=== PATIENT | female | born 1990 | race American Indian/Alaskan Native ===

== ENCOUNTER 2019-01-30 04:50 | Emergency (ER) | payer MEDICAID ==
[2019-01-30 04:59] VITALS: BP 129/73
[2019-01-30 06:25] LABS: HCG Qualitative,Urine Negative (Negative)
== END 2019-01-30 08:00 ==
LOC: ED 04:50
DX: G43.909 Migraine, unspecified, not intractable, without status migrainosus (principal); Z53.21 Procedure and treatment not carried out due to patient leaving prior to being seen by health care provider
CPT/HCPCS: 81025

== ENCOUNTER 2019-10-07 14:30 | Outpatient (CLI) | payer MEDICAID | END 2019-10-07 14:31 | disposition home or self-care (01) | LOC: LABHHL 14:30 | PROVIDERS: ATTEND Surgery | DX: D24.2 Benign neoplasm of left breast (principal) | CPT/HCPCS: 88305 ==

== ENCOUNTER 2019-10-19 09:41 | Outpatient (CLI) | payer MEDICAID ==
--- NOTE | 2019-10-19 10:45 | Mammography Report ---
DIGITAL DIAGNOSTIC MAMMOGRAM WITH CAD, 10/19/2019 INDICATION: Status post biopsy of a fibroadenoma left breast on 10/07/2019. STATUS POST BIOSPY/CLIP PL ACEMENT TECHNIQUE: Digital left mammographic imaging was performed. This examination was interpreted with the benefit of Computer-aided Detection analysis. COMPARISON: None available. FINDINGS: Breast Density: The breast is heterogeneously dense, which may obscure small masses. Localizer clip is identified at 12:00 and the clip is within a personally circumscribed mass measurin g at least 3 cm. Margins are partially obscured. IMPRESSION: Clip deployment appears to be concordant. Follow up recommendation: Unless otherwise clinically indicated, recommend patient return to routine screening mammography at age 38. BI-RADS Category 2: Benign. A "normal" or negative report should not discourage follow up or biopsy of a clinically significant f inding. A written summary of these findings will be mailed to the patient. The patient will be entered into a mammography reporting system which will generate a reminder letter for the patient's next appointmen t at the appropriate interval. According to the [employer], yearly mammograms are recommended starting at age 40 and continuing as long as a woman is in good health. Breast MRI is recommended for women with an antoinette roximately 20-25% or greater lifetime risk of breast cancer, including women with a strong family his tory of breast or ovarian cancer and women who have been treated for Hodgkin's disease. Signer Name: Efren Garcia MD Signed: 10/19/2019 10:41 AM Workstation Name: [id number]
== END 2019-10-19 09:42 | disposition home or self-care (01) ==
LOC: SPVWC 09:41
PROVIDERS: ATTEND Surgery
DX: R92.8 Other abnormal and inconclusive findings on diagnostic imaging of breast (principal); Z98.890 Other specified postprocedural states

== ENCOUNTER 2020-06-27 10:05 | Day surgery (SDC) | payer MEDICAID ==
[~2020-06-27 10:05] MED LIST: BUPIVACAINE/PF (0.25%) 2.5 MG/ML 30 ML VIAL INFILTRATI ONE; LIDOCAINE (1%) 10 MG/1 ML VIAL 20 ML MDV ONE; ceFAZolin/Water 2 GM/20 ML 2 GM/20 ML SYRINGE IV NR
[2020-06-27] MEDS ORDERED: LACTATED RINGERS 1,000 ML ONE ×2 (10:25→12:18)
--- NOTE | 2020-06-27 10:33 | Anesthesia Day of Surgery ---
Anesthesia Day of Surgery - Day of Surgery Patient Examined: Yes Patient H&P Reviewed: Yes Patient is NPO: Yes
--- NOTE | 2020-06-27 10:34 | Anesthesia Consultation ---
Anesthesia Consult and Med Hx Date of service: 06/27/20 - Airway Anesthetic Teeth Evaluation: Good ROM Head & Neck: Adequate Mental/Hyoid Distance: Adequate Mallampati Class: Class II Intubation Access Assessment: Good - Pre-Operative Health Status ASA Pre-Surgery Classification: ASA2 Proposed Anesthetic Plan: General - Pulmonary Hx Smoking: Yes Hx Asthma: No COPD: No - Cardiovascular System Hx Hypertension: No (Pt had preeclampsia and states complete resolution and no current symptoms) Hx Heart Attack/AMI: No Hx Pacemaker: No Hx Internal Defibrillator: No - Central Nervous System Hx Seizures: Yes (When preg due to preeclampsia) Hx Psychiatric Problems: No - Endocrine Hx Renal Disease: No Hx Liver Disease: No Hx Non-Insulin Dependent Diabetes: No - Hematic Hx Sickle Cell Disease: No - Other Systems Hx Cancer: Yes
[2020-06-27] MEDS ORDERED: LIDOCAINE MPF (2%) 20 MG/1 ML VIAL 5 ML ONE (10:47)
[2020-06-27] MEDS ORDERED: propofoL 200 MG/20 ML VIAL IV ONE (10:48)
[2020-06-27] MEDS ORDERED: HYDROmorphone 1 MG/1 ML INJ IV PRN ×2 (11:00)
[2020-06-27] MEDS ORDERED: ONDANSETRON 4 MG/2 ML INJ IV PRN (11:00)
[2020-06-27] MEDS ORDERED: MAGNESIUM OXIDE 400 MG TAB PO SCH (11:00)
[2020-06-27] MEDS ORDERED: GABAPENTIN 300 MG CAP PO NR (11:00)
[2020-06-27] MEDS ORDERED: ACETAMINOPHEN 500 MG TAB PO SCH (11:00)
[2020-06-27] MEDS ORDERED: LACTATED RINGERS 1,000 ML IV SCH (11:00)
[2020-06-27] MEDS ORDERED: MIDAZOLAM 2 MG/2 ML INJ IV NR (11:00)
[2020-06-27] MEDS ORDERED: CELECOXIB 200 MG CAP PO NR (11:00)
[2020-06-27] MEDS ORDERED: LIDOCAINE (1%) 10 MG/1 ML VIAL 20 ML MDV INFILTRATI ONE (12:06)
[2020-06-27] MEDS ORDERED: BUPIVACAINE/PF (0.25%) 2.5 MG/ML 30 ML VIAL INFILTRATI ONE (12:06)
[2020-06-27] MEDS ORDERED: SODIUM CHLORIDE 0.9% IRR 1,500 ML BOTTLE IR ONE (12:07)
[2020-06-27] MEDS ORDERED: ePHEDrine SULFATE 50 MG/1 ML INJ ONE (12:18)
[2020-06-27] MEDS ORDERED: PHENYLEPHRINE/NS 1,000 MCG/10 ML SYRINGE (OR USE) IV ONE (13:00)
[2020-06-27] MEDS ORDERED: dexAMETHasone 20 MG/5 ML VIAL ONE (13:00)
[2020-06-27] MEDS ORDERED: SODIUM CHLORIDE P/F VIAL 10 ML 10 ML ONE (13:11)
--- NOTE | 2020-06-27 13:21 | Short Stay Summary ---
Short Stay Documentation Date of service: 06/27/20 - History H&P: obtained from office - Allergies and Medications Current Medications: Allergies No Known Allergies Allergy (Verified 06/18/20 11:25) Home Medications Medication Instructions Recorded Confirmed Last Taken Type Vit-Fe Fumar-FA [ 1 tab PO QDAY 06/18/20 06/18/20 Unknown History Vitamin] HYDROcodone/APAP 5-325 [[place] 1 each PO Q6HR PRN #20 tablet 06/27/20 Unknown Rx 5/325] Active Medications Acetaminophen (Tylenol) 1,000 mg PO ONCE ANAHI Stop: 06/27/20 21:00 Last Admin: 06/27/20 10:43 Dose: 1,000 mg Documented by: Celecoxib (Celebrex) 400 mg PO PREOP NR Stop: 06/27/20 21:00 Last Admin: 06/27/20 10:43 Dose: 400 mg Documented by: Gabapentin (Gabapentin) 300 mg PO PREOP NR Stop: 06/27/20 21:00 Last Admin: 06/27/20 10:43 Dose: 300 mg Documented by: Hydromorphone HCl (Dilaudid) 0.25 mg IV Q10MIN PRN PRN Reason: Pain, Moderate (4-6) Stop: 06/27/20 16:00 Hydromorphone HCl (Dilaudid) 0.5 mg IV Q10MIN PRN PRN Reason: Pain , Severe (7-10) Stop: 06/27/20 16:00 Cefazolin Sodium (Ancef/Sterile Water 2 Gm/20 Ml) 2 gm in 20 mls @ 80 mls/hr IV PREOP NR; Protocol Stop: 06/27/20 20:00 Lactated Ringer's (Lactated Ringers) 1,000 mls @ 125 mls/hr IV DIRECT ANAHI Last Admin: 06/27/20 10:50 Dose: 125 mls/hr Documented by: Magnesium Oxide (Mag-Ox) 400 mg PO ONCE ANAHI Stop: 06/27/20 21:00 Last Admin: 06/27/20 10:43 Dose: 400 mg Documented by: Midazolam HCl (Versed) 2 mg IV PREOP NR Stop: 06/27/20 23:59 Last Admin: 06/27/20 10:55 Dose: 2 mg Documented by: Ondansetron HCl (Zofran) 4 mg IV ONCE PRN PRN Reason: Nausea And Vomiting Stop: 06/27/20 17:00 - Brief post op/procedure progress note Date of procedure: 06/27/20 Pre-op diagnosis: Right axillary mass and left breast fibroadenoma Post-op diagnosis: same Procedure: Right axillary mass excisional biopsy and left breast fibroadenoma excisional biopsy Anesthesia: GETA Findings: Left breast fibroadenoma at 12:00 position and right axillary mass Surgeon: MORGAN CAO Estimated blood loss: minimal Pathology: list (left breast fibroadenoma; right axillary mass) Specimen disposition: to lab Condition: stable - Disposition Condition at discharge: Good Disposition: DC- TO HOME OR SELFCARE Short Stay Discharge Plan Activity: other (no heavy lifting) Diet: regular Wound: keep clean and dry (wear breast binder; may shower in 48 hours; no baths, pools or lakes) Follow up with: MORGAN CAO MD [Staff Physician] - 7 Days Prescriptions: HYDROcodone/APAP 5-325 [[place] 5/325] 1 each PO Q6HR PRN #20 tablet PRN Reason: Pain
--- NOTE | 2020-06-27 14:07 | Post Anesthesia Evaluation ---
- Post Anesthesia Evaluation Patient Participated: Yes Airway Patent: Yes Stable Respiratory Function: Yes Nausea/Vomiting: No Temp > 96.8F: Yes Pain Manageable: Yes Adequeate Hydration: Yes Anesthesia Complications: No Block Receding Appropriately: Not Applicable Patient on Ventilator: No
[2020-06-27 14:25] VITALS: BP 116/76
--- NOTE | 2020-06-28 14:36 | Operative Report ---
Operative Report Operative Report: Operative Report: June 27, 2020 Preoperative diagnosis: Left breast fibroadenoma of the upper outer quadrant and right axillary mass Postoperative diagnosis: Same Procedure: Complex left breast fibroadenoma excisional biopsy of upper outer quadrant and right axillary mass excisional biopsy Surgeon: Torri Crow MD Artillery Specialist: Vicenta Wolff MD Anesthesia: General Findings: Left breast fibroadenoma at the 12:00 position and right axillary mass Complications: None EBL: Minimal Disposition: PACU in good condition Indications for operative procedure: This is a 30-year-old lady with known left breast fibroadenoma of the upper outer quadrant quadrant at the 12 o'clock position with recommendation for excisional biopsy given increase in size and size. Patient also with a right axillary mass probably for a lipoma and given size patient wanted to proceed with an excisional biopsy given discomfort. She wished to proceed with the above procedure. Procedure in detail: Patient was taken to the operating room and was laid supine. Gen. anesthesia was administered. Left breast and right breast and axilla were prepped and draped in the normal sterile operative fashion. Timeout was performed. Ultrasound was used as well identification of known breast fibroadenoma at the 12:00 position. Attention was then taken towards the left breast. Ultrasound was used as well. A periareolar breast incision around 12/1:00 position was made with a 15 blade knife and dissection taken down to subcutaneous tissues. Left breast mass was encountered that was appropriately dissected free with the aid of the Bovie cautery. Complex excision performed. Hemostasis was obtained with the Bovie cautery. No other additional palpable breast masses were present and no other lesions seen on ultrasound. The breast cavity was anesthetized with 1% lidocaine mixed with quarter percent Marcaine. The breast cavity was appropriately irrigated and suctioned. Hemostasis was noted. Deep breast tissue were approximated and closed using interrupted 3-0 Vicryl and the subcutaneous tissue approximated and closed using interrupted 3-0 Vicryl followed by closing of the skin with a running 4-0 Monocryl and dermabond. Attention was then taken towards excision of right axillary mass. An axillary incision was made with a 15 blade knife through the skin and the subcutaneous tissues were opened using the Bovie cautery. The mass was encountered and was appropriately dissected free underlying skin and subcutaneous tissues. Mass may represent a sebaceous cyst given an area of hair noted intertwined and connected to the mass with a tract leading to the underlying skin. The mass itself was removed in its entirety. Hemostasis was obtained. No other additional palpable masses were present. The axillary cavity was anesthetized with 1% lidocaine mixed with quarter percent Marcaine. The axillary cavity was appropriately irrigated and suctioned. Hemostasis was noted. Deep tissues were approximated and closed using interrupted 3-0 Vicryl and the subcutaneous tissue approximated and closed using interrupted 3-0 Vicryl followed by closing of the skin with a running 4-0 Monocryl and dermabond. The patient tolerated surgery very well and she was awaken from anesthesia without any complication and transported to PACU in good condition.
== END 2020-06-27 10:06 | disposition home or self-care (01) ==
LOC: OR 10:05
PROVIDERS: ATTEND Surgery
DX: D24.2 Benign neoplasm of left breast (principal); L72.11 Pilar cyst; N60.22 Fibroadenosis of left breast; Z20.828 Contact with and (suspected) exposure to other viral communicable diseases; F17.210 Nicotine dependence, cigarettes, uncomplicated; R92.0 Mammographic microcalcification found on diagnostic imaging of breast; Z79.899 Other long term (current) drug therapy; Z98.890 Other specified postprocedural states
CPT/HCPCS: 11404; 19120; 81025; 88304; 88305; J0690; J1100; J1170; J2250; J2370; J2405; J2704; J7120; U0003; 88307